=== PATIENT | female | born 1955 | race Caucasian/White ===

== ENCOUNTER → 2025-01-06 | Outpatient (CLI) | payer MEDICARE, SELFPAY ==
--- NOTE | 2025-01-06 09:00 | XR_ITS ---
Examination: CT chest, without intravenous contrast. Sagittal and coronal 2-D reconstructions. Exam date and time: January 06, 2025 0909 hrs. Indications: CT chest April 09, 2024 bilateral pulmonary nodules including new 5 mm pulmonary nodule left upper lobe 3 mm pulmonary nodule right lower lobe CTDI:vol (mGy) 14.5 DLP: (mGycm) 559 Technique: Multiple 3.0 mm axial sections of the chest to been obtained. Bone and lung density settings are obtained. Sagittal and coronal 2-D reconstructions have been obtained. Low dose protocols were performed. One or more of the following dose reduction techniques were used; automated exposure control, adjustment of the mA and/or KV according to patient size, use of iterative reconstruction technique. Findings: No thoracic aortic aneurysm dilatation Pulmonary artery segments are not enlarged Mild enlargement cardiac contour No paratracheal tracheobronchial or bronchopulmonary adenopathy Multiple subcentimeter bilateral pulmonary nodules No definite new pulmonary nodules No pneumonia or pulmonary edema Fatty infiltration throughout the liver No gallstones No hydronephrosis Impression: No change in subcentimeter bilateral pulmonary nodules, no new pulmonary nodules Consider 1 additional 6 month follow-up CT chest without contrast
== END | disposition home or self-care (01) ==
LOC: CCTX 08:48
PROVIDERS: PCP Family Medicine; Referring Provider Specialist; Visit Provider Specialist
DX: R91.8 Other nonspecific abnormal finding of lung field (principal)
CPT/HCPCS: 71250

== ENCOUNTER 2025-04-07 09:58 | Day surgery (SDC) | payer MEDICARE, SELFPAY ==
[2025-04-02 16:26] VITALS: BMI 40.7
--- NOTE | 2025-04-03 11:17 | EKG_ITS ---
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
[2025-04-03 12:12] LABS: Basophils # (Auto) 0.1 Thou/mm3 (0.0-0.2); Basophils % (Auto) 1 % (0-2.5); Eosinophils # (Auto) 0.4 Thou/mm3 (0.0-0.5); Eosinophils % (Auto) 3 % (0-10); Hemoglobin 11.8 g/dL (12.0-16.0); Immature Granulocytes % (Auto) 0 % (0-0); Immature Granulocytes Auto 0.03 Thou/mm3 (0.00-0.00); Lymphocytes # (Auto) 3.3 Thou/mm3 (1.0-4.8); Lymphocytes % (Auto) 32 % (10-50); Mean Corpuscular HGB Conc 32.8 g/dl (31.0-37.0); Mean Corpuscular Volume 92 fL (80-100); Monocytes # (Auto) 0.8 Thou/mm3 (0.0-0.8); Monocytes % (Auto) 7 % (0-12); Neutrophils % (Auto) 57 % (37-80); Nucleated Red Blood Cell % 0 /100 WBC (0); Platelet Count 258 Thou/mm3 (140-440); RDW Standard Deviation 44.3 fL (36.4-46.3); Red Blood Count 3.93 Miln/mm3 (4.00-5.20); White Blood Count 10.5 Thou/mm3 (3.6-11.0)
[2025-04-03 12:28] LABS: Anion Gap 9 (7-16); BUN/Creatinine Ratio 9 Ratio (12-20); Blood Urea Nitrogen 11 mg/dL (9-23); Calcium 8.4 mg/dL (8.3-10.6); Carbon Dioxide 27.7 mMol/L (20.0-31.0); Chloride 105 mMol/L (98-107); Creatinine (Component) 1.2 mg/dL (0.6-1.3); Estimated Creatinine Clearance 49.1 mL/min (>60); Glucose 107 mg/dL (74-106); Osmolality,Calculated 282 (275-295); Potassium 4.2 mMol/L (3.4-5.1); Sodium 142 mMol/L (136-145); eGFR 50 See Note
[2025-04-03 12:30] LABS: Partial Thromboplastin Time 26.3 Seconds (22.0-36.0); Prothrombin Time 11.1 Seconds (9.0-12.2)
[2025-04-07] VITALS (12 sets, daily range): BP systolic 133–171; BP diastolic 52–88; PULSE 52–69; RESP 12–16; TEMP 36.2–37.1; O2SAT 90–97; BMI 41.7
--- NOTE | 2025-04-07 14:47 | ESOP_ITS ---
RE: EPIFANIO PARNELL : 1955 DATE OF OPERATION: 04/07/2025 PROCEDURE PERFORMED: 1. Diagnostic left heart cardiac catheterization, selective coronary angiogram, and left ventricular angiogram, CPT 47145. 2. Ultrasound-guided access of the right radial artery. 3. Conscious sedation, 30 minutes duration. DIAGNOSES: Coronary artery disease, status post stent placement in the circumflex artery with abnormal stress test. HISTORY AND INDICATIONS: The patient is a 69-year-old lady with a history of hypertension and obesity, CAD, status post stent placement in circumflex artery in 2017 and recurrent shortness with chest pain. Cardiac stress test with nuclear scans was abnormal, hence coronary angiogram was recommended to assess the patient is a candidate for coronary intervention and revascularization. PROCEDURE IN DETAIL: The patient was brought to cardiac catheterization laboratory. She was given 2 mg of Versed and 50 mcg of fentanyl for conscious sedation. Right radial approach was taken. Right radial artery cannulated by micropuncture technique, 5-[place] Glidesheath was introduced. Selective right and left coronary angiogram, left ventricular angiogram and left heart catheterization performed by 5-[place] TIG-4 diagnostic catheter. The patient tolerated the procedure well. No complications. Radial cocktail was given prior to the procedure after the radial artery was cannulated. Hemostasis was secured with TR band. Cardiac catheterization showed following findings. Hemodynamics: Left ventricular pressure 126/10, EDP 18, aortic pressure 126/80. No gradient across the aortic valve. Left ventricular angiogram showed normal left ventricular wall motion, ejection fraction 70%. Coronary angiogram showed following findings. Right coronary artery is large and dominant, appears normal. Gives off PDA and PL branches. Left coronary system. Left main coronary artery is normal. Left anterior descending artery shows no significant stenosis. Circumflex artery showed a stent in the mid and distal segments widely patent. SUMMARY OF FINDINGS: 1. Widely patent stent involving the circumflex artery. 2. Nonobstructive epicardial coronary arteries. 3. Normal left ventricular systolic function, ejection fraction is 70%. RECOMMENDATIONS: The patient is reassured about the absence of significant obstructive coronary artery disease. Prognosis is excellent. DT: 13:29:51 TT: 14:44:00 Ref: [id number] - TID: [id number]
--- NOTE | 2025-04-07 17:05 | PC.NURSE ---
1208 patient is sleepy and arousable, breathing unlabored, s/p LHC by Dr. Gates, TR band present to right wrist, dry blood noted, no active bleeding or hematoma noted. Report received from Lionel LLANES, patient to recover for 3 hours. 1230 patient is awake, alert, breathing unlabored, report given to Jamila LLANES 1305 Report received from Jamila LLANES, 3ml air has been removed from TR band 1345 TR band removed, no bleeding or hematoma noted, site covered with tegaderm and coban. 1520 patient is awake, alert, breathing unlabored. right wrist is dry with no bleeding or hematoma. Patient able to tolerate food tray with no nausea or vomiting, meets discharge criteria, discharge instructions given to patient and family member, patient discharged home in wheelchair with all belongings.
== END 2025-04-07 15:20 | disposition home or self-care (01) ==
PROVIDERS: PCP Family Medicine; Referring Provider Internal Medicine Cardiovascular Disease; Visit Provider Internal Medicine Cardiovascular Disease
PROC: (CPT 93458; principal; 2025-04-07 11:30)
DX: I25.119 Atherosclerotic heart disease of native coronary artery with unspecified angina pectoris (principal); E66.9 Obesity, unspecified; I10 Essential (primary) hypertension; Z95.5 Presence of coronary angioplasty implant and graft; Z01.810 Encounter for preprocedural cardiovascular examination; Z68.41 Body mass index [BMI] 40.0-44.9, adult
CPT/HCPCS: 93458; 36415; 80048; 85025; 85610; 85730; 93005; 99152; 99153; A4649; C1887; J0171; J0461; J1643; J2250; J2310; J2371; J3010; J3490; Q9967; J2305

== ENCOUNTER → 2025-07-07 | Outpatient (CLI) | payer MEDICARE, SELFPAY ==
--- NOTE | 2025-07-07 13:00 | XR_ITS ---
Examination: CT chest, without intravenous contrast. Sagittal and coronal 2-D reconstructions. Exam date and time: July 07, 2025 1259 hrs., Comparison January 06, 2025 Indications: Bilateral subcentimeter pulmonary nodules on CT chest January 06, 2025, April 09, 2024 CTDI:vol (mGy) 13.6 DLP: (mGycm) 159 Technique: Multiple 3.0 mm axial sections of the chest to been obtained. Bone and lung density settings are obtained. Sagittal and coronal 2-D reconstructions have been obtained. Low dose protocols were performed. One or more of the following dose reduction techniques were used; automated exposure control, adjustment of the mA and/or KV according to patient size, use of iterative reconstruction technique. Findings: Thoracic aortic calcification no aneurysmal dilatation Pulmonary artery segments are not enlarged. Mild calcification left anterior descending left circumflex coronary arteries No paratracheal tracheobronchial or bronchopulmonary adenopathy Stable bilateral subcentimeter pulmonary nodules. No new pulmonary nodules. No pneumonia or pulmonary edema or pleural disease Liver spleen visualized appear intact No gallstones Impression: Stable bilateral subcentimeter pulmonary nodules, new pulmonary nodules
== END | disposition home or self-care (01) ==
PROVIDERS: Referring Provider Specialist; Visit Provider Specialist
DX: R91.8 Other nonspecific abnormal finding of lung field (principal)
CPT/HCPCS: 71250

== ENCOUNTER → 2025-08-14 | Outpatient (CLI) | payer MEDICARE, SELFPAY ==
[2025-08-14 16:49] LABS: Amphetamine/Methamp Scrn,U Negative (Negative); Barbiturate Screen,Urine Negative (Negative); Benzodiazepines Screen,Urine Negative (Negative); Benzoylecgonine Screen, Ur Negative (Negative); Fentanyl Screen,Urine Negative (Negative); Opiate Screen,Urine Negative (Negative); THC Screen,Urine Negative (Negative)
== END | disposition home or self-care (01) ==
LOC: SLDO 14:17
PROVIDERS: PCP Registered Nurse; Referring Provider Registered Nurse; Visit Provider Registered Nurse
DX: F19.230 Other psychoactive substance dependence with withdrawal, uncomplicated (principal); G89.4 Chronic pain syndrome
CPT/HCPCS: 80307